=== PATIENT | female | born 2005 ===

== ENCOUNTER 2024-03-30 06:45 | Outpatient (REF) | payer BC, SELFPAY ==
--- NOTE | ~2024-03-30 | US_ITS ---
EXAMINATION: US PELVIC AND TRANSVAGINAL CLINICAL INFORMATION: Pelvic pain. LMP 03/13/2024. COMPARISON: None available. TECHNIQUE: Ultrasound of the pelvis is performed using both transabdominal and transvaginal transducers along with Doppler. Transvaginal imaging is performed due to inadequate visualization transabdominally. FINDINGS: Uterus: The uterus is anteverted and measures 7.2 x 3.3 x 3.9 cm. The double wall endometrial thickness is 3 mm. IUD within the endometrium. The uterus is smooth in contour and has normal myometrial echogenicity. No visible fibroid. Adnexa: Both ovaries are visualized. There is normal color flow to the adnexa. There is no ovarian torsion. There is no pelvic ascites or fluid collection. Right ovary measures 3.3 x 1.8 x 1.8 cm. Volume of 5.6 mL. Left ovary measures 3.5 x 2 x 2.3 cm. Volume of 8.4 mL. US/US pelvic and transvaginal IMPRESSION: 1. IUD within the endometrium. 2. Otherwise unremarkable examination. Electronically signed by: Thomas Mcdonnell MD 03/30/2024 06:42 PM [facility]
== END 2024-03-30 06:46 | disposition home or self-care (01) ==
LOC: HO.UMASIMG 06:45
PROVIDERS: Visit Provider Family Medicine
DX: N94.12 Deep dyspareunia (principal)
CPT/HCPCS: 76830; 76856